=== PATIENT | male | born 1955 | race Caucasian/White ===

== ENCOUNTER 2020-04-06 08:00 | Outpatient (CLI) | payer BC | END 2020-04-06 23:59 | disposition home or self-care (01) | LOC: LAB.R 08:00 | PROVIDERS: ATTEND Physician Assistant Medical | DX: R31.9 Hematuria, unspecified (principal); R30.0 Dysuria; R39.11 Hesitancy of micturition | CPT/HCPCS: 87086 ==

== ENCOUNTER 2020-04-07 13:10 | Emergency (ER) | payer BC ==
--- NOTE | 2020-04-07 13:35 | ED Physician Documentation ---
History of Present Illness - Stated complaint Stated Complaint: MALE - Chief complaint Chief Complaint: General - History obtained from History obtained from: Patient, Family () - Additonal information Additional information: 64-year-old gentleman was seen by his primary care physician yesterday, UTI presumed and started on nitrofurantoin. Subsequently he has been unable to urinate since 430 this morning. No history of prostatic issues or urinary retention. Review of Systems Ten Systems: 10 systems reviewed and negative Constitutional: reports: Reviewed and negative Cardiac: reports: Reviewed and negative Respiratory: reports: Reviewed and negative PD PAST MEDICAL HISTORY - Allergies Allergies/Adverse Reactions: Allergies Allergy/AdvReac Type Severity Reaction Status Date / Time No Known Drug Allergies Allergy Verified 04/07/20 13:25 PD ED PE NORMAL - Vitals Vital signs reviewed: Yes - General General: Alert and oriented X 3, No acute distress - Abdomen Abdomen: Normal bowel sounds, Soft, Non tender, Other (Swollen distended bladder, bladder scan shows 723 mL) - Neuro Neuro: Alert and oriented X 3, Normal speech Results - Vitals Vitals: Vital Signs - 24 hr 04/07/20 13:24 Temperature 36.1 C L Heart Rate 65 Respiratory 18 Rate Blood Pressure 170/75 H O2 Saturation 98 Oxygen O2 Source Room air PD MEDICAL DECISION MAKING - ED course ED course: I was called into the room as the nurse was about to place a Leal as he had abnormal anatomy. What he had looks like a mucocele or mucous membrane scar tissue over the tip of the urethra. This was incised with a #15 blade and after that urine was free-flowing and he felt much better. Departure - Departure Disposition: 01 Home, Self Care Clinical Impression: Urinary retention Condition: Good Record reviewed to determine appropriate education?: Yes Comments: You were seen today for urinary retention and the cause was evidently some scar tissue over the tip of your urethra which we opened up and you were subsequently able to urinate. Return if you are unable to urinate again. Regardless you should follow-up with a urologist, the office in [place] is [phone].
[2020-04-07] MEDS ORDERED: LIDOCAINE 2% URO-JET 5 ML SYRINGE UR STA (13:46)
[2020-04-07 14:32] VITALS: BP 168/72
== END 2020-04-07 14:36 | disposition home or self-care (01) ==
LOC: ED 13:10
DX: L90.5 Scar conditions and fibrosis of skin (principal); R33.8 Other retention of urine
CPT/HCPCS: 51798; 99283